=== PATIENT | male | born 1940 | race Caucasian/White ===

== ENCOUNTER 2016-09-19 20:07 | Emergency (ER) | payer OTHER ==
[~2016-09-19] VITALS: Ht 172.7 cm; Wt 63.5 kg
[~2016-09-19 20:07] MED LIST: ASPI325T4 PO; ATOR10TA PO; HYDR12.53 PO; LISI1TAB3 PO; METO25TA4 PO
[2016-09-19 20:23] VITALS: BP 157/79
[2016-09-19] MEDS ORDERED: NEOMY/BACITR/POLYMYXIN OINT PACKET. TP ONE (20:45)
[2016-09-19] MEDS ORDERED: HYDROCODONE/APAP 5/325MG TABLET. PO ONE (20:45)
[2016-09-19] MEDS ORDERED: HYDR-2678 PO (20:52)
--- NOTE | 2016-09-19 20:53 | PHYS DOC ---
Past Medical History Past Medical History: CHF, Hypertension Past Surgical History: Coronary Bypass Surgery, Other Additional Past Surgical Histo: FEM/POP BYPASS,CAROTID STENT Alcohol Use: None Drug Use: None Adult General Chief Complaint Chief Complaint: LOWEREXTREMITY INJURY HPI HPI Patient is a 76 year old man who presents to the ER today secondary to concern for infection to the wound that he sustained several days ago. Patient reports that he had fallen down. [facility] went to [facility] they x-rayed him and got a CT scan of his head and everything was normal. Patient presents today after being to the [facility] and being given doxycycline because he has increased redness and a small amount of drainage and pain from the abrasion to his leg. Patient denies any fevers shaking chills. Nausea vomiting or diarrhea. Patient reports he feels generalized weakness however this is not new for him. Patient's physical exam is significant for an abrasion to his pretibial region on his right leg as well as a 1 x 1 cm superficial abrasion to his right knee. There is some small amount of superficial erythema no fluctuance no drainage. Patient is clinically hemodynamically stable for discharge to home. Patient will be sent home on Neosporin and Lortab. Review of Systems Review of Systems Constitutional: Denies fever or chills [] Eyes: Denies change in visual acuity, redness, or eye pain [] All other review of systems are negative except as documented in the history of present illness portion. Current Medications Current Medications Current Medications Medications (Trade) Dose Ordered Sig/Aki Start Time Stop Time Status Last Admin Dose Admin Acetaminophen/ Hydrocodone Bitart (Lortab 5/325) 1 tab 1X ONCE 09/19/16 20:45 09/19/16 20:46 DC Neomycin/ Polymyxin/ Bacitracin (Triple Antibiotic Ointment) 2 pkt 1X ONCE 09/19/16 20:45 09/19/16 20:46 DC Allergies Allergies Allergies Coded Allergies Type Severity Reaction Last Updated Verified No Known Drug Allergies 03/08/14 No Physical Exam Physical Exam Constitutional: Well developed, well nourished, no acute distress, non-toxic appearance. [] HENT: Normocephalic, atraumatic, bilateral external ears normal, oropharynx moist, no oral exudates, nose normal. [] Eyes: PERRLA, EOMI, conjunctiva normal, no discharge. [] Neck: Normal range of motion, no tenderness, supple, no stridor. [] Cardiovascular:Heart rate regular rhythm, no murmur [] Lungs & Thorax: Bilateral breath sounds clear to auscultation [] Abdomen: Bowel sounds normal, soft, no tenderness, no masses, no pulsatile masses. [] Skin: Warm, dry, no erythema, no rash. [] Back: No tenderness, no CVA tenderness. [] Extremities see above Neurologic: Alert and oriented X 3, normal motor function, normal sensory function, no focal deficits noted. [] Psychologic: Affect normal, judgement normal, mood normal. [] Current Patient Data Vital Signs Vital Signs Date Time Temp Pulse Resp B/P Pulse Ox O2 Delivery O2 Flow Rate FiO2 09/19/16 20:23 98.0 84 18 97 Room Air 98.0 EKG EKG [] Radiology/Procedures Radiology/Procedures [] Course & Med Decision Making Course & Med Decision Making Pertinent Labs and Imaging studies reviewed. (See chart for details) [] Dragon Disclaimer Dragon Disclaimer This electronic medical record was generated, in whole or in part, using a voice recognition dictation system. Departure Departure Impression: Primary Impression: Skin abrasion Disposition: HOME, SELF-CARE Condition: STABLE Referrals: NO PCP (PCP) Patient Instructions: Wound Care, [id number] Scripts Hydrocodone/Acetaminophen (Lortab 5-325 mg Tablet)1 Each Tablet1 Tab PO PRN Q6HRS PRN PAIN #10 TAB Prov:CARLY HOLT MD 09/19/16 CARLY HOLT MD Sep 19, 2016 20:46
[2016-09-19] MEDS ORDERED: DIPHTH,PERTUSS(ACELL),TET TOX 0.5 ML DISP.SYRIN. VAX IM ONE (21:00)
== END 2016-09-19 21:14 | disposition home or self-care (01) ==
LOC: ER 20:07
DX: S80.211A Abrasion, right knee, initial encounter (principal); I11.0 Hypertensive heart disease with heart failure; I50.9 Heart failure, unspecified; Z95.1 Presence of aortocoronary bypass graft
CPT/HCPCS: 90471; 90715; 99283-25; 99284-25

== ENCOUNTER → 2020-04-01 | Outpatient (CLI) | payer OTHER ==
[~2020-04-01] MED LIST changes: -ASPI325T4 PO; +ASPI325T8 PO; +HYDR-2678 PO; -HYDR12.53 PO; +HYDR12.575 PO; +LISI1TAB23 PO; -LISI1TAB3 PO
--- NOTE | 2020-04-01 16:11 | RAD ---
MRI Brain without contrast History:Tremor Technique: Multiplanar, multisequential noncontrast MR imaging was performed of the brain. Comparison: None Findings: There is no evidence of recent infarct or cytotoxic edema. Ventricular size is proportionate to the sulcal spaces, moderate to severe generalized supratentorial atrophy.There is no significant midline shift, intraaxial mass effect, or focal abnormal extra-axial fluid collection. There is encephalomalacia with cortical involvement and associated gliosis of the left occipital lobe, smaller foci of the right occipital lobe as well as the right posterior frontal lobe. There is other scattered mild to moderate T2 and FLAIR hyperintense signal of the supratentorial parenchyma bilaterally. There are some tiny old cerebellar lacunar infarcts bilaterally, also of the left thalamus. There is preservation of the major intracranial flow-voids at the skull base. The cerebellar tonsils are normal in location. There is no significant abnormality of the pineal gland or pituitary gland. There is patchy minimal ethmoid air cell mucosal thickening. The mastoid air cells are aerated. There is preserved marrow signal of the clivus. There has been lens surgery bilaterally, slightly disconjugate gaze. Impression: 1. There is no evidence of recent infarct. There are some small old lacunar infarcts as stated. There are also small old infarcts with cortical involvement such as of the occipital lobes greater on the left and the posterior right frontal lobe. 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 Electronically signed by: Victor Hugo Mcnamara MD (04/01/2020 4:08 PM) [id number]
== END | disposition home or self-care (01) ==
LOC: MRI 13:46
PROVIDERS: ATTEND Family Medicine
DX: G25.2 Other specified forms of tremor (principal); G31.1 Senile degeneration of brain, not elsewhere classified; G93.89 Other specified disorders of brain; Z86.73 Personal history of transient ischemic attack (TIA), and cerebral infarction without residual deficits
CPT/HCPCS: 70551

== ENCOUNTER → 2021-02-24 | Outpatient (CLI) | payer OTHER ==
--- NOTE | 2021-02-24 14:35 | KCIC ---
EXAM: LUMBAR SPINE 3 VIEWS. HISTORY: Left low back pain COMPARISON: 04/12/2014. FINDINGS: A mild superior endplate compression deformity at L2 appears stable since 2013. There is a mild dextrocurvature across the thoracolumbar junction. Degenerative disc disease is moderate at L4-5 . Disc heights are maintained without a levels. Changes of coronary artery bypass grafting are partially visualized. There are diffuse aortoiliac ath erosclerotic calcifications. Additional calcifications projecting over the kidneys may represent a co mbination of atherosclerotic calcification and calculi measuring up to 4 mm. IMPRESSION: 1. Chronic mild superior plate compression fracture at L2. 2. Moderate degenerative disc disease at L4-5. Electronically signed by: Jcarlos Monroe MD (02/24/2021 2:32 PM) [facility]
== END ==
LOC: KCIC 08:35
PROVIDERS: ATTEND Family Medicine
DX: S32.020A Wedge compression fracture of second lumbar vertebra, initial encounter for closed fracture (principal); M51.36 Other intervertebral disc degeneration, lumbar region; I70.0 Atherosclerosis of aorta; I70.8 Atherosclerosis of other arteries; Z95.1 Presence of aortocoronary bypass graft; X58.XXXA Exposure to other specified factors, initial encounter; Y93.89 Activity, other specified; Y92.89 Other specified places as the place of occurrence of the external cause; Y99.8 Other external cause status
CPT/HCPCS: 72100